=== PATIENT | male | born 1950 | race African-American/Black ===

== ENCOUNTER 2025-08-14 17:56 | Emergency (ER) | payer MEDICARE, SELFPAY ==
--- OUTSIDE RECORDS SUMMARY | 2007-12-24 18:00 | XMS_ITS | Continuity of Care Document ---
Author Organization [facility] Address [address] [place] [address] Phone Care Team Providers Care Intermediate Frame Tender Name Role Phone Unavailable Unavailable Unavailable Procedures Procedure Date OFFICE CONSULT, 15 MIN, 3 KE Y COMPS: PROB FOCUS HX; PROB FOCUS EXAM; [facility] OFFICE CONSULT, 15 MIN, 3 KE Y COMPS: PROB FOCUS HX; PROB FOCUS EXAM; [facility] Advance Directives Directive Yes / No Effective Date File Name No Information Encounters Encounter Description Practice Location Reason(s) For Visit Diagnoses Date Provider Providers Copied on Encounter OFFICE CONSULT, 15 MIN, 3 MORGAN COMPS: PROB FOCUS HX; PROB FOCUS EXAM; [facility] [employer] , [address], [place], [place], [id number], [place] tel:[phone] [facility] ECONOMIC PROBLEM No Information OFFICE CONSULT, 15 MIN, 3 MORGAN COMPS: PROB FOCUS HX; PROB FOCUS EXAM; [facility] [employer] , [address], [place], [place], [id number], [place] tel:[phone] [facility] ECONOMIC PROBLEM No Information Family History Family Member Type Diagnosis Age At Onset No Information Payers Payer name Insurance type Covered republican ID Authoriza tion(s) No Information Social History Type Description Quantity Date Captured Comments Sex Male Smoking Status No Information Chief Complaint And Reason For Visit No Information Reason For Referral Reason For Referral No Information History Of Present Illness Encounter Date Complaint History Of Prese nt Illness No Information Functional Status Date Functional Assessmen t No Information Instructions Date Instruction Additional Infor mation No Information Assessments Type Assessment Date No Information Patient Care Teams Name Effective Dates (start - stop) Status Members No Information
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
--- OUTSIDE RECORDS SUMMARY | 2025-08-14 17:58 | XMS_ITS | Continuity of Care Document ---
Author Organization [place] [facility] [address] [place] [address] Assessment Encounter Date Assessment Date Assessment LastModified by Organization Details LastModified Time 05/28/2025 05/28/2025 03/30/2025: PSA 0.5 VIT D 11 [email or web address] Not available 05/28/2025 11:08:41 Plan of Treatment Reminders Order Date Submit Date Provider Last Modified By Organization Details Last Modified Time Details Appointments Any 15 2024 09:00A M Ana celis MD Not available Not available Not available Lab lipid panel, serum [address] [facility], [address] [place], [address], 05/28/2025 11:17:47 CMP, serum or plasma [email or web address] [facility], [address] [place], [address], 05/28/2025 11:17:36 CBC w/ auto diff [email or web address] [facility], [address] [place], [address], 05/28/2025 11:17:36 TSH + free T4, serum [email or web address] [facility], [address] [place], [address], 05/28/2025 11:17:36 vitamin D3, 25-hydrox y, serum 2024 025 [email or web address] [facility] - [facility], [address] [place], [address], 05/28/2025 11:17:35 Referral None recorded. Procedures None recorded. Surgeries None recorded. Imaging None recorded. Medication Orders Crestor 40 mg tablet 2024 025 [facility] [facility] [address][id number], [address] [place], [place], [id number], 05/28/2025 11:17:35 cholecalc iferol (vitamin D3) 1,250 mcg (50,000 unit) capsule 2024 025 [facility] [employer] [address][id number], [address] [place], [place], [id number], 05/28/2025 11:17:34 Patient TargetsNo targets recorded. Patient InstructionsNo instructions recorded. Reason for Referral None Reported. Results Created Date Observation Date Name Description Value Unit Range Abnormal Flag Note LastModifiedBy Organization Detail LastModifiedTime 05/28/20 25 01/30/2024 colon oscop y proce dure (PROC ) No observ ation record ed. BARCODE Not Available 2024 16:38:02 Result Notes None recorded. 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 Active 2023 Sirena Lopez APRN [address] [facility] [facility] [address], [place], [address], [email or web address] 4 15:16:18 Numbness of lower limb 609076979 Active 2023 Sirena Lopez APRN [address], [address], [place], [address], [email or web address] 4 15:16:23 Erectile dysfunction 728385223 Active 2023 Sirena Lopez APRN [address], [address], [place], [address], [facility] [employer] [facility] 4 11:02:53 Vitamin D below reference range 260868345 Active 2024 Ana celis MD [address], [address], [place], [address], [facility] [employer] [email or web address] 5 12:19:06 Leukopenia 29510759 Active 2024 Ana celis MD [address], [address], [place], [address], [email or web address] 5 11:11:22 Anemia 133447964 Active 2024 Ana celis MD [address], [address], [place], [address], [email or web address] [email or web address] 5 11:11:29 Problem Notes None recorded. Procedures Surgical History Date Name Laterality Status Provider Name and Address Organization Details Recorded Time 4 Medicare Wellness CPT Code, subsequent completed Srikanth Brennan LPN [email or web address] 06/23/2024 08:27:00 4 Medicare Wellness CPT Code, Initial completed Sirena Lopez APRN [address], [address], [place], [address], [email or web address] 06/20/2024 20:59:05 Imaging Results None recorded. Procedure Notes None recorded. Medical Equipment None Reported. Allergies Allergen ID Allergen Name Allergen Category Reaction Reaction Severity Criticality Documentation Date Start Date Code Code System Note Provider Name and Address Organization Details Recorded Time 18333 No known allergy (situatio n) Not available Not available Not available Not available 03/05/2024 75280 6003 SNOMED Sirena Lopez APRN [address], [address], [place], [address], [facility] [employer] 4 10:30:54 No known drug allergies Medications Name Sig Start Date Stop Date Status Note LastModified by Organization Details LastModified Time Crestor 40 mg tablet Take 1 tablet every day by oral route for 90 days. 2024 active Not Available Not Available Not Avai lable cholecalciferol (vitamin D3) 1,250 mcg (50,000 unit) capsule Take 1 capsule every week by oral route for 90 days. 2024 active Not Available Not Available Not Avai lable Vitals Date Recorded Body height Body mass index (BMI) Body weight Body temperature Pain severity - 0-10 verbal numeric rating [Score] - Reported Heart rate Oxygen saturation Systolic And Diastolic Provider Name and Address Organization Details Last Updated DateTime 5 177.8 cm 26.3 kg/m2 28003.4 g 97.1 [degF] 0 66 /min 98 % 144/82 mm[Hg] Madina Langley MA [email or web address] 5 10:13:46 Social History Question Answer Notes LastModified by Organizat ion Details LastModified Time Tobacco Smoking Status Never Smoker Not Available [facility] 11/15/2022 16:57:05 Is Blood Transfusion Acceptable In An Emergency? Yes [email or web address] Information not available 12/13/2023 What Is Your Level Of Caffeine Consumption? Moderate Information not available 03/24/2024 In The 14 Days Before Symptom Onset, Have You Had Close Contact With A Laboratory-confir med COVID-19 While That Case Was Ill? No [email or web address] Information not available 12/13/2023 In The 14 Days Before Symptom Onset, Have You Had Close Contact With A Person Who Is Under Investigation For COVID-19 While That Person Was Ill? No [email or web address] Information not available 12/13/2023 What Type Of Diet Are You Following? REGULAR [email or web address] Information not available 12/13/2023 How Many Days Of Moderate To Strenuous Exercise, Like A Brisk Walk, Did You Do In The Last 7 Days? 5 [email or web address] Information not available 12/13/2023 Have There Been Any Changes To Your Family Or Social Situation? No Information no t available 03/24/2024 Do You Use Insect Repellent Routinely? No Information not available 03/24/2024 Where Do You Live? SingleLevelHouse Information not available 03/24/2024 What Was The Date Of Your Most Recent Tobacco Screening? 05/28/2025 Information not available 05/28/2025 Do You Have Any Pets? No [email or web address] Information not available 12/13/2023 What Is Your Relationship Status? Domestic Partner Information not available 08/07/2024 Do You Use Your Seat Belt Or Car Seat Routinely? Yes Information not available 12/13/2023 Do You Have Smoke And Carbon Monoxide Detectors In Your Home? Yes Information not available 12/13/2023 Are You Passively Exposed To Smoke? No Information no t available 03/24/2024 Are There Any Smokers In Your House? Yes Information not available 03/24/2024 Do You Use Sunscreen Routinely? No Information not available 03/24/2024 Have You Recently Traveled Abroad? No Information not available 12/13/2023 Have You Used IV Drugs? No Information not available 03/24/2024 Sex: Unknown Functional Status Question Answer Note LastModified by Organizat ion Details LastModified Time Do you use any illicit or recreational drugs? Yes Marijuana [email or web address] Information not available 12/13/2023 Do you or have you ever used any other forms of tobacco or nicotine? No Information not available 03/24/2024 What is your level of alcohol consumption? Moderate Beer [email or web address] Information not available 12/13/2023 Are you currently employed? Yes [email or web address] Information not available 12/13/2023 What is your occupation? Retired [email or web address] Information not available 12/13/2023 What is your exercise level? Moderate Rides bike [email or web address] Information not available 12/13/2023 Mental Status Question Answer Note LastModified by Organization D etails LastModified Time Do you feel stressed (tense, restless, nervous, or anxious, or unable to sleep at night)? [id number] [email or web address] Information not available 12/13/2023 Family History Relationship Description Onset Age of this Age Resolved Age Notes LastModified by Organization Details LastModified Time Unspecified Relation Family history of malignant neoplasm [id number] Not available 11/15/2022 16:57:11 Unspecified Relation History of hypertension [id number] Not available 11/15/2022 16:57:11 Medical History No medical history recorded. Immunizations Vaccine Type Date Status Note Provider Nam e and Address Organization Details Recorded Time Tdap 4 completed Sirena Lopez APRN [address], [place], [address], [email or web address] 03/24/2024 11:02:53 Influenza, high-dose, trivalent, PF 4 completed Sirena Lopez APRN [address], [place], [address], [email or web address] 08/11/2024 10:43:33 Tdap 5 completed Not Available [facility] 05/28/2025 10:09:27 Pneumococcal conjugate PCV 13 7 completed Not Available [facility] 05/28/2025 10:09:27 COVID-19, mRNA, LNP-S, PF, 30 mcg/0.3 mL dose 1 completed Not Available [facility] 05/28/2025 10:09:27 COVID-19, mRNA, LNP-S, PF, 30 mcg/0.3 mL dose 1 completed Not Available [facility] 05/28/2025 10:09:27 Past Encounters Encounter ID Performer Location Encounter Start Date Encounter Closed Date Diagnosis/Indication Diagnosis SNOMED-CT Code Diagnosis ICD10 Code Diagnosis IMO Codes Diagnosis Note [id number] Ana patel MD [facility] [address] [place] [address] 05/28/2025 10:07:45 05/28/2025 11:18:17 Screening due 354358053 Z13.9 14916839 C-scope: get this done if not done Get yearly flu shot, can do Tdap if not doneCan do COVID 19 booster and shingrix vaccineGet Prevnar #20 vaccineCan do RSV vaccine RTC in 3 months, do labs, ER if worse, he verbalized his understand ing of the above Vitamin D below reference range 242951214 R79.89 27165744 Hyperlipidemia 86516484 E78.5 91586352 Leukopenia 83583430 D72. 819 63575293 Anemia 561763908 D64.9 66490040 Health Concerns Section Related Observation LastModified by Organization Detai ls LastModified Time None Recorded Concern Status LastModified by Organization Details LastModified Time None Recorded Payers Encounter Date Sequence Insurance Name Policy Number Policy Wolfe Covered Member ID Wolfe Member ID Guarantor Name 05/28/2025 1 [employer] (MEDICARE REPLACEMENT/ ADVANTAGE - PPO) [id number] Nader Oquendo [id number] Nader Oquendo Notes Date Note Type Note Provider Name and Address Organization Details Recorded Time 05/28/2025 text/html O V003/05/2025: Here to establish care Present Hx:NoneHere to get labs, here with his , states that he is doing very well, no complaints OV 05/28/2025: Here for his f/u apt, he is doing well today Ana Hitchcock MD [address] [facility], [address], [place], [address], [place] [facility] 05/28/2025 18:28:00
--- OUTSIDE RECORDS SUMMARY | 2025-08-14 17:58 | XMS_ITS | Clinical Summary ---
Author Organization [facility] Address [address] [place] [address] Care Team Providers Care Last Sorter Name Role Phone Yuridia Hargrove CENTRAL STERILE TECH-FRONT DESK PERSON Primary Care Prov ider Source Comments [facility],non-owned Affiliates and Associated Physician Practices is amultiple site organization consisting of ambulatory clinics and hospital sitesin [place], [place], [place] and [place]. This disclosure is being madepursuant to the Care Everywhere program and may not contain all information available regarding this patient. Last updated 18.[facility] Allergies No known active allergies Medications * Be aware that medications may not be up to date on this document. Alwaysverify current medications with the patient. amoxicillin (AMOXIL) 250 MG/5ML suspensionIndicat ions:Abscess of right buttock,Celluliti s of right buttock,Encounter for long-term (current) use of medications Take 10 mL by mouth 3 times daily 900 mL 2 12/02/2018 Active Active Problems Problem Noted Date Diagnosed Date Actinomycosis 12/02/2018 Cellulitis of right buttock 11/08/2018 Abscess of right buttock 11/08/2018 KIAH (acute kidney injury) Contrast dye induced nephropathy Family History Medical History Relation Name Comments CAD (Coronary Artery Disease) Brother Cancer - Lung Father Unknown age of lung cancer onset Diabetes - Type 2 Father Cancer - Breast Mother Relation Name Status Comments Brother Father Mother Social History Tobacco Use Types Packs/Day Years Used Date Smoking Tobacco: Never Smokeless Tobacco: Never Alcohol Use Standard Drinks/Week Comments Yes 14 (1 standard drink = 0.6 oz pu re alcohol) Sex and Gender Information Value Date Recorded Sex Assigned at Not on file Legal Sex Male 12:50 PM MANAGER REPORTING Gender Identity Not on file Sexual Orientation Not on file Occupation Industry Job Start Date Job End Date Retired Not on file Not on file Not on file Last Filed Vital Signs Vital Sign Reading Time Taken Comments Blood Pressure 130/78 12/02/2018 9:41 AM CDT Pulse 52 12/02/2018 9:41 AM CDT Temperature 36.7 C (98 F) 11/25/2018 11:02 AM CDT Respiratory Rate 20 12/02/2018 9:41 AM CDT Oxygen Saturation 98% 12/02/2018 9:41 AM CDT Inhaled Oxygen Concentration - - Weight 85.7 kg (189 lb) 12/02/2018 9:41 AM CDT Height 170.2 cm (5' 7) 12/02/2018 9:41 AM CDT Body Mass Index 29.6 12/02/2018 9:41 AM CDT Plan of Treatment Health Maintenance Due Date Last Done Comments COLOGUARD (AGES 45-75) - COLON CA SCREENING 1949 COLON MONITORING 1949 COLONOSCOPY - COLON CA SCREENING 1949 CT COLONOGRAPHY - COLON CA SCREENING 1950 Colorectal Cancer Screening 1949 FIT - COLON CA SCREENING 1949 FLEX SIG - COLON CA SCREENING 1949 LIPID TESTING 1949 HEPATITIS C SCREENING 10/15/1967 DTAP/TDAP/TD VACCINES (1 - Tdap) 1968 PNEUMOCOCCAL VACCINE 50+ (1 of 1 - PCV) 1999 ZOSTER VACCINE (1 of 2) 1999 SCREENING FOR DIABETES 11/15/2021 9, 11/14/2018, 11/13/2018, Additional history exists DEPRESSION SCREENING 09/17/2024 Respiratory Syncytial Virus (RSV) Vaccine Pt: or over 60 yrs (1 - 1-dose 75+ series) 2024 COVID-19 VACCINE (1 - 2024- season) 2025 INFLUENZA VACCINE (#1) 2025 HEPATITIS B VACCINE Aged Out No longe r eligible based on patient's age to complete this topic HIB VACCINE Aged Out No longer eligi ble based on patient's age to complete this topic HPV VACCINE Aged Out No longer eligi ble based on patient's age to complete this topic MENINGOCOCCAL (Group B) VACCINE SHARED DECISION-MAKING Aged Out No longer eligible based on patient's age to complete this topic MENINGOCOCCAL GROUPS A/C/Y/W VACCINE Aged Out No longer eligible based on patient's age to complete this topic Procedures Procedure Name Priority Date/Time Associated Diagnosis Comments RENAL FUNCTION PANEL AM Draw 11/15/2018 6:03 AM MANAGER REPORTING from Last 3 Months or Most Recently Relevant to Health Maintenance Results * (ABNORMAL) RENAL FUNCTION PANEL (11/15/2018 6:03 AM MANAGER REPORTING) BUN 13 7 - 26 mg/dL 11/15/2018 6:51 AM [facility] Creatinine 1.8(H) 0.6 - 1.2 mg/dL 11/15/2018 6:51 AM [facility] Sodium 145 136 - 145 mmol/L 11/15/2018 6:51 AM [facility] Potassium 3.8 3.5 - 4.5 mmol/L 11/15/2018 6:51 AM [facility] Chloride 107 98 - 107 mmol/L 11/15/2018 6:51 AM [facility] CO2 27 22 - 29 mmol/L 11/15/2018 6:51 AM [facility] Glucose 101 70 - 115 mg/dL 11/15/2018 6:51 AM [facility] Albumin 2.7(L) 3.4 - 5.0 g/dL 11/15/2018 6:51 AM [facility] Calcium 9.1 8.4 - 10.2 mg/dL 11/15/2018 6:51 AM [facility] Phosphorus 3.0 2.3 - 4.7 mg/dL 11/15/2018 6:51 AM [facility] Anion Gap 15 8 - 18 11/15/2018 6:51 AM [facility] BUN/Creatinine Ratio 7 7 - 23 11/15/2018 6:51 AM [facility] Osmolality Calculated 300 270 - 300 mOsm/kg 11/15/2018 6:51 AM [facility] eGFR 46(L) >60 mL/min/1.7 3 m2 11/15/2018 6:51 AM MANAGER REPORTING [facility] Blood BLOOD SPECIMEN / Unknown 11/15/2018 6:03 AM MANAGER REPORTING 11/15/2018 6:22 AM MANAGER REPORTING Lynda Shields MD LAB - CHEMISTRY ORDERABLES Ria poon Result [facility] [address] [phone] from Last 3 Months or Most Recently Relevant to Health Maintenance Insurance MEDICAID [place] BENEFIT - [place] [facility] Advance Directives * Full Code (Latest Code Status on File) Date Activated Date Inactivated Comments 11/08/2018 7:06 PM 11/15/2018 5:56 PM Care Teams Last Sorter Relationship Specialty Start Date End Date Yuridia Hargrove APRN-CARMELLA PCP - General 11/19/18
--- OUTSIDE RECORDS SUMMARY | 2025-08-14 17:58 | XMS_ITS | Data Portability ---
Author Organization [place] [facility], Main Office Address [address] [place] [address] Assessment Encounter Date Assessment Date Assessment LastModified [...] available Lab lipid panel, serum [address] Outpatient Lab, [address] [place], [address], 05/28/2025 11:17:47 CMP, serum or plasma [address] Outpatient Lab, [address] [place], [address], 05/28/2025 11:17:36 CBC w/ auto diff [address] Outpatient Lab, [address] [place], [address], 05/28/2025 11:17:36 TSH + free T4, serum [address] Outpatient Lab, [address] [place], [address], 05/28/2025 11:17:36 vitamin D3, 25-hydrox y, serum 2024 025 [email or web address] [facility] - Outpatient Lab, [address] [place], [address], 05/28/2025 11:17:35 PSA, total + free, serum or plasma - Please recode using diagnosis N42.9 [address] Outpatient Lab, [address] [place], [address], 04/14/2025 17:40:14 lipid panel, serum 2024 025 [facility] Lab, [address] [place], [address], 03/30/2025 13:35:58 CMP, serum or plasma 2024 025 [facility] Outpatient Lab, [address] [place], [address], 03/30/2025 13:36:01 CBC w/ auto diff 2024 025 [facility] Outpatient Lab, [address] [place], [address], 03/30/2025 13:20:10 TSH + free T4, serum - Please recode using diagnosis code. E78.5 [email or web address] Outpatient Lab, [address] [place], [address], 04/14/2025 17:40:24 vitamin D3, 25-hydrox y, serum 2024 025 [email or web address] [facility] Outpatient Lab, [address] [place], [address], 03/16/2025 09:51:14 hepatitis C virus Ab, serum 2023 [email or web address] [place] [address] - Outpatient Lab, [address] [place], [address], 02/16/2025 08:27:53 hepatitis C panel, serum [email or web address] (Lab), [address] [place], [address], 03/24/2024 11:26:59 PSA, serum or plasma 2023 024 [facility] Outpatient Lab, [address] [place], [address], 03/24/2024 15:01:56 lipid panel, serum 2023 024 [facility] Outpatient Lab, [address] [place], [address], 03/24/2024 15:01:56 CBC w/ auto diff 2023 024 [facility] (Lab), [address] [place], [address], 12/19/2023 08:19:21 CMP, serum or plasma [email or web address] (Lab), [address] [place], [address], 12/13/2023 11:38:10 TSH, serum or plasma 2023 024 [facility] (Lab), [address] [place], [address], 12/19/2023 08:19:21 lipid panel, serum 2023 024 [facility] (Lab), [address] [place], [address], 06/17/2024 07:45:29 PSA, serum or plasma 2023 024 [facility] (Lab), [address] [place], [address], 06/17/2024 07:45:29 lipid panel, serum 2023 024 [facility] (Lab), [address] [place], [address], 06/17/2024 07:45:29 HbA1c (hemoglob in A1c), blood 2023 024 [facility] (Lab), [address] [place], [address], 12/19/2023 08:19:21 Referral urologist referral - Please call patient to schedule. 2023 024 [email or web address] [facility], [address] [place], [address], 08/18/2024 09:52:33 Procedures colonosco py screening (PROC) 2023 024 marisa Walters MD, [address] [facility], [facility] [place], [address], 07/01/2024 07:33:31 Surgeries None recorded. Imaging ankle brachial index [address] ([facility]), [address] [place], [address], 10/06/2024 18:47:13 US, lower leg - Right lower extremity [address] ([facility]), [address] [place], [address], 10/06/2024 18:47:13 Medication Orders Crestor 40 mg tablet 2024 025 [id number], [address] [place], [place], [id number], 05/28/2025 11:17:35 cholecalc iferol (vitamin D3) 1,250 mcg (50,000 unit) capsule 2024 025 [id number], [address] [place], [place], [id number], 05/28/2025 11:17:34 Patient TargetsNo targets recorded. Patient Instructions Encounter Date Encounter Id Patient Instructions Last Modified By Organization Details Last Modified Time 12/13/2023 [id number] Follow up in 3 months Obtain labs Referral gastroenterology for colonoscopy Tetanus vaccine at [facility] Not available 12/13/2023 11:41:07 03/24/2024 [id number] Follow up in 3 months for Annual medicare wellness visit Obtain labs US of right lower extremity Ankle Brachial indexes Recommend shingles vaccine Recommend pneumococcal vaccine Not available 03/24/2024 11:22:08 08/07/2024 [id number] advance care planning: care instructions Not available 08/07/2024 11:01:24 advance directiv es: care instructions Not available 08/07/2024 11:01:24 [place] Advance Directives Not available 08/07/2024 11:01:24 multi-dimensiona health assessment questionnaire* Not available 08/07/2024 11:01:24 care plan* Not available 08/07 11:01:24 Follow up in 6 months Tests: Referral: Urology-erectile dysfunction Recommend: Pneumococcal vaccine Tetanus vaccine Shingles vaccine Personalized Health Plan and Screening Recommendations Advance Directives - Do you have one? No You have indicated that you are capable of preparing your advance care directive Advance Directives - Do we have your advance directive on file in your health record? Primary Prevention/Intervent ion (prevents or decreases the chance of common diseases from occurring) Smoking Risk: Non Smoker Alcohol Misuse Screening: Negative Weight: Appropriate try to lose 5% of your body weight Physical activity: Appropriate physical activity minimum of 10-20 minutes of activity that causes mild breathlessness/day Nutrition: Average Refer to attached handout DASH Diet: After Your Visit Fall Risk (screened today): Low Refer to attached handout Preventing Falls: After your Visit Vaccines Pneumococcal: Recommended today Influenza: Ordered Chronic Disease Risks Stroke: Intermediate Risk I have no recommendations Heart Attack: Intermediate Risk I have no recommendations Clogging of the Arteries: Low risk I have no recommendations Diabetes: Low Risk I have no recommendations Secondary Prevention/Intervent ion (detects treatable diseases before they may cause symptoms, disability, or ) Prostate Cancer Screening: No PSA screening necessary No digital rectal exam screening necessary Colon Cancer Screening: Colonoscopy No screening necessary Date Screening Last Performed: __03/2024___ Eye Disease Screening: No Eye exam necessary Dementia Risk: Low I have no recommendations Depression Screening: Negative Not available 08/07/2024 11:16:33 Reason for Referral Urologist Referral for Erect ile dysfunction Please call patient to schedule. Referring Physician: Sirena Lopez, Internal Medicine, Encounter Date: 08/07/2024 Results Created Date Observation Date Name Description Value Unit Range Abnormal Flag Note LastModifiedBy Organization Detail LastModifiedTime 05/28/20 25 01/30/2024 colon oscop y proce dure (PROC ) No observ ation record ed. BARCODE Not Available 2024 16:38:02 Result Notes None recorded. Problems Name Problem SNOMED Code Status Onset Date Resolution Date Notes Provider Name and Address Organization Details Recorded Time Hyperlipidemia 51989575 Active 2023 Ana celis MD [address], [address], [place], [address], [employer] 5 11:11:09 Disorder of prostate 36792985 Active 2023 Sirnea Lopez APRN [address], [address], [place], [address], [employer] 4 15:16:18 Numbness of lower limb 085218208 Active 2023 Sirena Lopez APRN [address], [address], [place], [address], [employer] 4 15:16:23 Erectile dysfunction 746596749 Active 2023 Sirena Lopez APRN [address], [address], [place], [address], [employer] 4 11:02:53 Vitamin D below reference range 340234443 Active 2024 Ana celis MD [address], [place] [address], [place], [address], [employer] [facility] 5 12:19:06 Leukopenia 59139278 Active 2024 Ana celis MD [address], [place] [address], [place], [address], [employer] 5 11:11:22 Anemia 711724482 Active 2024 Ana celis MD [address], [place] [address], [place], [address], [employer] [facility] 5 11:11:29 Problem Notes None recorded. Procedures Surgical History Date Name Laterality Status Provider Name and Address Organization Details Recorded Time 4 Medicare Wellness CPT Code, subsequent completed Srikanth Brennan LPN [employer] [facility] 06/23/2024 08:27:00 4 Medicare Wellness CPT Code, Initial completed Sirena Lopez APRN [address], [place] [address], [place], [address], [employer] [facility] 06/20/2024 20:59:05 Imaging Results None recorded. Procedure Notes None recorded. Medical Equipment None Reported. Allergies Allergen ID Allergen Name Allergen Category Reaction Reaction Severity Criticality Documentation Date Start Date Code Code System Note Provider Name and Address Organization Details Recorded Time 98675 No known allergy (situatio n) Not available Not available Not available Not available 03/05/2024 97638 6003 SNOMED Sirena Lopez APRN [address], [address], [address], [employer] [facility] 4 10:30:54 No known drug allergies Medications [...] Not Avai lable Vitals Date Recorded Body weight Body mass index (BMI) Body height Body temperature Oxygen saturation Heart rate Systolic And Diastolic Provider Name and Address Organization Details Last Updated DateTime 4 92829.3 7 g 27 kg/m2 177.8 cm 96.5 [degF] 98 % 65 /min 134/70 mm[Hg] Eduin King CMA [facility] [employer] [facility] 4 11:11:49 Date Recorded Body height Body mass index (BMI) Body weight Body temperature Heart rate Oxygen saturation Pain severity - 0-10 verbal numeric rating [Score] - Reported Systolic And Diastolic Provider Name and Address Organization Details Last Updated DateTime 5 177.8 cm 26 kg/m2 65510.2 2 g 97.6 [degF] 60 /min 97 % 0 128/70 mm[Hg] Madina Langley MA [facility] [employer] [facility] 5 11:50:34 Date Recorded Body height Body mass index (BMI) Body weight Body temperature Heart rate Oxygen saturation Systolic And Diastolic Provider Name and Address Organization Details Last Updated DateTime 4 177.8 cm 26.8 kg/m2 30624.7 7 g 98.2 [degF] 69 /min 94 % 128/66 mm[Hg] Madina Langley MA [facility] [employer] [facility] 4 10:45:07 Date Recorded Body height Body mass index (BMI) Body weight Body temperature Pain severity - 0-10 verbal numeric rating [Score] - Reported Heart rate Oxygen saturation Systolic And Diastolic Provider Name and Address Organization Details Last Updated DateTime 5 177.8 cm 26.3 kg/m2 56590.4 g 97.1 [degF] 0 66 /min 98 % 144/82 mm[Hg] Madina Langley MA [facility] [employer] [facility] 5 10:13:46 Date Recorded Body height Body mass index (BMI) Body weight Body temperature Heart rate Oxygen saturation Pain severity - 0-10 verbal numeric rating [Score] - Reported Systolic And Diastolic Provider Name and Address Organization Details Last Updated DateTime 4 177.8 cm 26.5 kg/m2 83192.5 9 g 98.1 [degF] 64 /min 97 % 1 144/74 mm[Hg] Madina Langley [place] [facility] 4 10:41:44 Social History Question Answer Notes LastModified by Organizat ion Details LastModified Time Tobacco Smoking Status Never Smoker Not Available [facility] 11/15/2022 16:57:05 Is Blood Transfusion Acceptable In An Emergency? Yes [email or web address] Information not available 12/13/2023 What Is Your Level Of Caffeine Consumption? Moderate Information not available 03/24/2024 In The 14 Days Before Symptom Onset, Have You Had Close Contact With A Laboratory-confir med COVID-19 While That Case Was Ill? No Information not available 12/13/2023 In The 14 Days Before Symptom Onset, Have You Had Close Contact With A Person Who Is Under Investigation For COVID-19 While That Person Was Ill? No Information not available 12/13/2023 What Type Of Diet Are You Following? REGULAR [email or web address] Information not available 12/13/2023 How Many Days Of Moderate To Strenuous Exercise, Like A Brisk Walk, Did You Do In The Last 7 Days? 5 [email or web address] Information not available 12/13/2023 Have There Been Any Changes To Your Family Or Social Situation? No Information no t available 03/24/2024 Do You Use Insect Repellent Routinely? No Information not available 03/24/2024 Where Do You Live? SingleLevelHouse Information not available 03/24/2024 What Was The Date Of Your Most Recent Tobacco Screening? 05/28/2025 Information not available 05/28/2025 Do You Have Any Pets? No Information not available 12/13/2023 What Is Your Relationship Status? Domestic Partner Information not available 08/07/2024 Do You Use Your Seat Belt Or Car Seat Routinely? Yes [email or web address] Information not available 12/13/2023 Do You Have Smoke And Carbon Monoxide Detectors In Your Home? Yes [email or web address] Information not available 12/13/2023 Are You Passively Exposed To Smoke? No Information no t available 03/24/2024 Are There Any Smokers In Your House? Yes Information not available 03/24/2024 Do You Use Sunscreen Routinely? No Information not available 03/24/2024 Have You Recently Traveled Abroad? No [email or web address] Information not available 12/13/2023 Have You Used IV Drugs? No Information not available 03/24/2024 Sex: Unknown Functional Status Question Answer Note LastModified by Organizat ion Details LastModified Time Do you use any illicit or recreational drugs? Yes Marijuana [email or web address] Information not available 12/13/2023 Do you or have you ever used any other forms of tobacco or nicotine? No Information not available 03/24/2024 What is your level of alcohol consumption? Moderate Beer [email or web address] Information not available 12/13/2023 Are you currently employed? Yes Information not available 12/13/2023 What is your occupation? Retired [email or web address] Information not available 12/13/2023 What is your exercise level? Moderate Rides bike [email or web address] Information not available 12/13/2023 Mental Status Question Answer Note LastModified by Organization D etails LastModified Time Do you feel stressed (tense, restless, nervous, or anxious, or unable to sleep at night)? [id number] [email or web address] Information not available 12/13/2023 Family History Relationship Description Onset Age of this Age Resolved Age Notes LastModified by Organization Details LastModified Time Unspecified Relation Family history of malignant neoplasm [id number] Not available 11/15/2022 16:57:11 Unspecified Relation History of hypertension [id number] [id number] Not available 11/15/2022 16:57:11 Medical History No medical history recorded. Immunizations Vaccine Type Date Status Note Provider Nam e and Address Organization Details Recorded Time Tdap 4 completed Sirena Lopez APRN [address] [facility], [facility] [address], [place], [address], [facility] [employer] 03/24/2024 11:02:53 Influenza, high-dose, trivalent, PF 4 completed Sirena Lopez APRN [address] [facility], [address], [place], [address], [place] [facility] 08/11/2024 10:43:33 Tdap 5 completed Not Available [facility] 05/28/2025 10:09:27 Pneumococcal conjugate PCV 13 7 completed Not Available [facility] 05/28/2025 10:09:27 COVID-19, mRNA, LNP-S, PF, 30 mcg/0.3 mL dose 1 completed Not Available [facility] 05/28/2025 10:09:27 COVID-19, mRNA, LNP-S, PF, 30 mcg/0.3 mL dose 1 completed Not Available [facility] 05/28/2025 10:09:27 Past Encounters Encounter ID Performer Location Encounter Start Date Encounter Closed Date Diagnosis/Indication Diagnosis SNOMED-CT Code Diagnosis ICD10 Code Diagnosis IMO Codes Diagnosis Note [id number] Lex Oquendo MD [address] [address] 12/14/2020 00:00:00 12/14/2020 10:42:36 [id number] Lex Oquendo MD [address] [address] 01/11/2021 00:00:00 01/11/2021 10:54:32 [id number] Ana patel MD [facility] Internal Med [facility] 15 [address] [facility], [address] [address] 12/13/2023 10:56:21 12/13/2023 11:47:50 Diabetes mellitus screening 480798388 Z13.1 Hyperlipid emia screening 511844890 Z13.220 Screening for disorder 550321464 Z13.9 Adult heal th examination 536483094 Z00.00 Z00.01 Screening for malignant neoplasm of colon 409964663 Z12.11 [id number] Ana patel MD [facility] Internal Med [facility] 15 [address] [facility], [address] [address] 03/24/2024 10:19:28 03/24/2024 11:27:17 Screening for disorder 765971742 Z13.9 Hyperlipidemia 22909310 E78.5 Disorder of prostate 302 [address] N42.9 Numbness o f lower limb 482757218 R20.0 [id number] Ana patel MD [facility] Internal Med [facility] [address] [facility], [address] [address] 08/07/2024 10:32:25 08/07/2024 11:18:41 Adult health examination 434473408 Z00.00 Screening for disorder 983038006 Z13.9 Hepatitis C screening 41 2917066 Z11.59 Administra tion of influenza vaccine 13125922 Z23 Erectile dysfunction 860 175567 F52.21 [id number] Ana patel MD [facility] Internal Med [facility] [address] [facility], [address] [address] 03/05/2025 11:37:09 03/05/2025 12:35:35 Screening due 288326475 Z13.9 55380213 C-scope: get this done if not done Get yearly flu shot, can do Tdap if not doneCan do COVID 19 booster and shingrix vaccineGet Prevnar #20 vaccineCan do RSV vaccine RTC in 3 months, do labs, ER if worse, he verbalized his understand ing of the above Hyperlipid emia screening 814096304 Z13.220 934952 Screening for malignant neoplasm of prostate 503634070 Z12.5 975106 Vitamin D below reference range 805587353 R79.89 94799001 [id number] Ana patel MD [facility] Internal Med [facility] [address] [facility], [address] [address] 05/28/2025 10:07:45 05/28/2025 11:18:17 Screening due 349730915 Z13.9 08870102 C-scope: get this done if not done Get yearly flu shot, can do Tdap if not doneCan do COVID 19 booster and shingrix vaccineGet Prevnar #20 vaccineCan do RSV vaccine RTC in 3 months, do labs, ER if worse, he verbalized his understand ing of the above Vitamin D below reference range 545111455 R79.89 15377461 Hyperlipidemia 70006347 E78.5 30418841 Leukopenia 70063246 D72. 819 97776383 Anemia 800875775 D64.9 82251109 Health Concerns Section Related Observation LastModified by Organization Detai ls LastModified Time None Recorded Concern Status LastModified by Organization Details LastModified Time None Recorded Advance Directives Directive None Recorded Payers Insurance Date Sequence Insurance Name Policy Number Policy Wolfe Covered Member ID Wolfe Member ID Guarantor Name 06/02/2025 1 [employer] (MEDICARE REPLACEMENT/A DVANTAGE - PPO) [id number] Nader Oquendo [id number] Nader Jere 06/02/2025 1 [employer] (HMO) [id number] L Nader Jere [id number] [facility] 06/02/2025 1 [employer] - PRIME (MEDICARE REPLACEMENT/A DVANTAGE - HMO) [id number] Nader Jere [id number] [facility] 06/02/2025 1 [facility] (MEDICARE REPLACEMENT/A DVANTAGE - HMO) [id number] Nader Jere [id number] Nader Oquendo Notes Date Note Type Note Provider Name and Address Organization Details Recorded Time 12/13/2023 text/html Nader presents today to establish care as a new patient to the office. He states that he has not seen a provider in years. He denies an diseases, illness, or medications. Denies allergies. He is requesting to have prostate checked and colonoscopy. 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 Sirena Lopez, FLOOR WORKER [employer] [address] [facility], [facility] [address], [place], [address], [place] [facility] [employer] 12/13/2023 11:45:44 03/24/2024 text/html Nader presents today for 3 month follow up. He is asking for a parking placard. He also states that his right lower extremity gets numb at night when he lays down. He states that he had his colonoscopy done and nothing was found. 12/13/2023Nader presents today to establish care as a new patient to the office. He states that he has not seen a provider in years. He denies an diseases, illness, or medications. Denies allergies. He is requesting to have prostate checked and colonoscopy. 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 Sirena Lopez APRN [address], [address], [place], [address], [employer] 03/24/2024 12:20:44 08/07/2024 text/html Nader presents today for his Medicare Annual Wellness exam. 03/24/2024Nader presents today for 3 month follow up. He is asking for a parking placard. He also states that his right lower extremity gets numb at night when he lays down. He states that he had his colonoscopy done and nothing was found. 12/13/2023Nader presents today to establish care as a new patient to the office. He states that he has not seen a provider in years. He denies an diseases, illness, or medications. Denies allergies. He is requesting to have prostate checked and colonoscopy. 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 Sirena Lopez APRN [address], [address], [place], [address], [employer] 08/11/2024 13:56:13 03/05/2025 text/html O V003/05/2025: Here to establish care Present Hx:None Here to get labs, here with his , states that he is doing very well, no complaints Ana Hitchcock MD [address], [address], [place], [address], [employer] 03/05/2025 17:42:47 05/28/2025 text/html O V003/05/2025: Here to establish care Present Hx:NoneHere to get labs, here with his , states that he is doing very well, no complaints OV 05/28/2025: Here for his f/u apt, he is doing well today Ana Hitchcock MD [address], [address], [place], [address], [employer] 05/28/2025 18:28:00
--- OUTSIDE RECORDS SUMMARY | 2025-08-14 17:58 | XMS_ITS | Clinical Summary ---
Author Organization [facility] Address [address] [place] [address] Care Team Providers Care Injection Molding Machine Operator Name Role Phone None, Provider MD Primary Care Provider Unavaila ble Social History Tobacco Use Types Packs/Day Years Used Date Smoking Tobacco: Never Assessed Sex and Gender Information Value Date Recorded Sex Assigned at Not on file Legal Sex Male 8:01 AM CDT Gender Identity Not on file Sexual Orientation Not on file Plan of Treatment Health Maintenance Due Date Last Done Comments Colorectal Cancer Screening Colonoscopy (10 Years) 1950 Hepatitis C 1967 DTaP, Tdap and Td Vaccines ( 1 - Tdap) 1968 Pneumococcal Vaccine: 50+ Ye ars (1 of 1 - PCV) 1999 Zoster Vaccines (1 of 2) 1999 Annual Medicare Wellness Visit 2014 RSV Immunization or 60+ Years (1 - 1-dose 75+ series) 2024 COVID-19 Vaccine ( - 2024-2 6 season) 2025 Influenza Adult (#1) 2025 Hepatitis A Vaccines Aged Out No long er eligible based on patient's age to complete this topic Meningococcal B Vaccine Aged Out No l onger eligible based on patient's age to complete this topic Meningococcal Vaccine Aged Out No suzanne paola eligible based on patient's age to complete this topic RSV Immunizations Under 20 Months Aged Out No longer eligible based on patient's age to complete this topic Insurance AET[employer] MEDICARE Care Teams Injection Molding Machine Operator Relationship Specialty Start Date End Date None, Provider, PCP - General UNKNOWN PHYSICIAN SPECIALTY 01/30/24
[2025-08-14 17:59] VITALS: BP 191/93; PULSE 76; RESP 20; TEMP 36.5; O2SAT 100
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
== END 2025-08-14 20:21 | disposition left against medical advice (07) ==
PROVIDERS: Emergency Provider Physician Assistant
DX: R07.89 Other chest pain (principal); M54.9 Dorsalgia, unspecified; R10.9 Unspecified abdominal pain; R51.9 Headache, unspecified; J32.9 Chronic sinusitis, unspecified; V49.40XA Driver injured in collision with unspecified motor vehicles in traffic accident, initial encounter
CPT/HCPCS: 70450; 70486; 71260; 72125; 72129; 72132; 74177; 99284; Q9967